=== PATIENT | female | born 1965 | race Caucasian/White ===

== ENCOUNTER → 2020-12-25 | Outpatient (CLI) | payer OTHER ==
[~2020-12-25] MED LIST: KEFLEX CAP 500500 MG PO
== END ==
LOC: EROP 13:15
DX: Z11.52 Encounter for screening for COVID-19 (principal)
CPT/HCPCS: U0002

== ENCOUNTER 2021-06-30 07:26 | Emergency (ER) | payer OTHER | END 2021-06-30 09:15 | disposition home or self-care (01) | LOC: ER1 07:26 | DX: R51.9 Headache, unspecified (principal); R19.7 Diarrhea, unspecified; Z88.2 Allergy status to sulfonamides; Z90.49 Acquired absence of other specified parts of digestive tract; Z20.822 Contact with and (suspected) exposure to COVID-19 | CPT/HCPCS: 99284; U0002 ==

== ENCOUNTER → 2022-03-30 | Outpatient (CLI) | payer BC, OTHER ==
[2022-03-30 09:52] LABS: HEMOGLOBIN 14.2 gm/dl (12.3-15.3); RED BLOOD COUNT 4.82 M/UL (4.00-5.10); WHITE BLOOD COUNT 4.5 K/UL (4.5-11.0)
[2022-03-30 10:09] LABS: BUN/CREATININE RATIO 25 (0-10)
== END ==
LOC: LAB 09:29
PROVIDERS: Nurse Practitioner Family
DX: M54.50 Low back pain, unspecified (principal); R53.83 Other fatigue; I10 Essential (primary) hypertension; M47.816 Spondylosis without myelopathy or radiculopathy, lumbar region
CPT/HCPCS: 36415; 72100; 80048; 80061; 84443; 85025

== ENCOUNTER → 2022-05-11 | Day surgery (SDC) | payer BC, OTHER ==
[~2022-05-11] MED LIST changes: +LEXAPRO10 MG PO; +METOPROLOL TART25 MG PO
== END | disposition home or self-care (01) ==
LOC: OR 06:37
DX: Z12.11 Encounter for screening for malignant neoplasm of colon (principal); K57.30 Diverticulosis of large intestine without perforation or abscess without bleeding; K64.1 Second degree hemorrhoids; K62.89 Other specified diseases of anus and rectum; K64.4 Residual hemorrhoidal skin tags; E66.9 Obesity, unspecified; Z68.31 Body mass index [BMI] 31.0-31.9, adult; Z88.2 Allergy status to sulfonamides; Z79.899 Other long term (current) drug therapy
CPT/HCPCS: J2704; J7040